=== PATIENT | female | born 1965 | race African-American/Black ===

== ENCOUNTER 2018-03-17 13:24 | Emergency (ER) | payer MEDICARE, OTHER ==
[~2018-03-17] VITALS: Ht 165.1 cm; Wt 110.0 kg
[~2018-03-17 13:24] MED LIST: ASCO500T24 PO; CITA10TA68 PO; CLOP75 PO; DIVA125T32 PO; GABA-533 PO; MONT10TA21 PO; TOPI100T37 PO; VERA240SR PO
[2018-03-17 15:04] LABS: BASOPHILS % (AUTO) 0.4 % (0.0-2.0); EOSINOPHILS % (AUTO) 2.5 % (1.0-6.0); HEMATOCRIT 40.2 % (36-46); HEMOGLOBIN 13.6 g/dL (12.0-16.0); LYMPHOCYTES # (AUTO) 1.7 K/uL (1.0-4.8); LYMPHOCYTES % (AUTO) 28.6 % (22.0-44.0); MEAN CORPUSCULAR HEMOGLOBIN 31.9 pg (26.0-34.0); MEAN CORPUSCULAR HGB CONC 33.7 G/dL (31.0-37.0); MEAN CORPUSCULAR VOLUME 95 fL (80-100); MONOCYTES # (AUTO) 0.7 K/uL (0.1-1.0); MONOCYTES % (AUTO) 11.2 % (2.0-9.0); NEUTROPHILS # (AUTO) 3.3 K/uL (1.8-7.7); NEUTROPHILS % (AUTO) 57.3 % (40.0-70.0); PLATELET COUNT (AUTO) 267 K/uL (150-450); RED BLOOD CELL COUNT(AUTO) 4.24 MIL/uL (4.00-5.20); RED CELL DISTRIBUTION WIDTH 15.5 % (11.5-14.5)
[2018-03-17 15:16] LABS: ANION GAP 9 mmol/L (8-16); CALCIUM, TOTAL 9.3 mg/dL (8.8-10.5); CARBON DIOXIDE 29 mmol/L (22-29); CHLORIDE 105 mmol/L (98-107); CREATININE 1.04 mg/dL (0.60-1.30); GLOMERULAR FILTR. RATE CALC > 60 mL/min (>60); GLUCOSE,RANDOM 84 mg/dL (70-110); POTASSIUM 4.3 mmol/L (3.5-5.1); SODIUM SERUM 143 mmol/L (136-145); UREA NITROGEN, BLOOD 8 mg/dL (7-18)
[2018-03-17 15:18] LABS: PROTHROMBIN TIME 10.4 SEC (9.4-11.6)
[2018-03-17 15:21] LABS: ALANINE AMINOTRANSFERASE 18 U/L (12-78); ALBUMIN 3.4 g/dL (3.4-5.0); ALKALINE PHOSPHATASE 105 U/L (46-116); ASPARTATE AMINOTRANSFERASE 17 U/L (15-37); BILIRUBIN,TOTAL 0.3 mg/dL (0.1-1.0)
[2018-03-17 15:33] LABS: VALPROIC ACID < 3 mcg/mL (50-100)
[2018-03-17 15:49] LABS: B-TYPE NATRIURETIC PEPTIDE 9 pg/mL (0-100)
[2018-03-17] MEDS ORDERED: SODIUM CHLORIDE 0.9% 100 ML ONE (15:58)
[2018-03-17] MEDS ORDERED: IOVERSOL 350 MG/ML 100 ML VIAL ONE (15:58)
[2018-03-17] MEDS ORDERED: ACETAMINOPHEN 500 MG TABLET PO ONE (17:00)
[2018-03-17 19:24] VITALS: BP 119/72
== END 2018-03-17 19:38 | disposition short-term general hospital (02) ==
LOC: EMS 13:56
DX: R53.1 Weakness (principal); R51 Headache; J02.9 Acute pharyngitis, unspecified; R19.7 Diarrhea, unspecified; F17.210 Nicotine dependence, cigarettes, uncomplicated; Z86.73 Personal history of transient ischemic attack (TIA), and cerebral infarction without residual deficits; Z88.0 Allergy status to penicillin; Z88.6 Allergy status to analgesic agent; Z88.5 Allergy status to narcotic agent
CPT/HCPCS: 36415; 70450; 70496; 71045; 80053; 80164; 83880; 84484; 85025; 85610; 85730; 93005; 99285; J7050; Q9967

== ENCOUNTER 2018-07-07 21:47 | Emergency (ER) | payer MEDICARE ==
[~2018-07-07] VITALS: Ht 165.1 cm; Wt 105.5 kg
[~2018-07-07 21:47] MED LIST changes: -CLOP75 PO; +CLOP75TA3 PO
[2018-07-07] MEDS ORDERED: TOPI100T37 PO (22:16)
[2018-07-07] MEDS ORDERED: ATOR40TA28 PO (22:17)
[2018-07-07] MEDS ORDERED: PERTUSS(ACELL),DIPH,TET VAC/PF 0.5 ML VIAL IM ONE (23:30)
[2018-07-08] MEDS ORDERED: HYDROCODONE/ACETAMINOPHEN 5-325 MG TABLET PO ONE (00:15)
[2018-07-08] MEDS ORDERED: LIDOCAINE 1% 10 ML VIAL INJ ONE (00:15)
[2018-07-08 00:36] LABS: BASOPHILS % (AUTO) 0.4 % (0.0-2.0); HEMATOCRIT 37.9 % (36-46); HEMOGLOBIN 12.6 g/dL (12.0-16.0); LYMPHOCYTES # (AUTO) 1.6 K/uL (1.0-4.8); LYMPHOCYTES % (AUTO) 25.1 % (22.0-44.0); MEAN CORPUSCULAR HEMOGLOBIN 32.1 pg (26.0-34.0); MEAN CORPUSCULAR HGB CONC 33.4 G/dL (31.0-37.0); MEAN CORPUSCULAR VOLUME 96 fL (80-100); MONOCYTES # (AUTO) 0.4 K/uL (0.1-1.0); MONOCYTES % (AUTO) 6.4 % (2.0-9.0); NEUTROPHILS # (AUTO) 4.2 K/uL (1.8-7.7); NEUTROPHILS % (AUTO) 67.1 % (40.0-70.0); PLATELET COUNT (AUTO) 284 K/uL (150-450); RED BLOOD CELL COUNT(AUTO) 3.94 MIL/uL (4.00-5.20); RED CELL DISTRIBUTION WIDTH 14.7 % (11.5-14.5)
[2018-07-08 00:43] LABS: ALANINE AMINOTRANSFERASE 10 U/L (12-78); ALBUMIN 3.3 g/dL (3.4-5.0); ALKALINE PHOSPHATASE 73 U/L (46-116); ANION GAP 11 mmol/L (8-16); ASPARTATE AMINOTRANSFERASE 9 U/L (15-37); BILIRUBIN,TOTAL 0.2 mg/dL (0.1-1.0); CARBON DIOXIDE 23 mmol/L (22-29); CHLORIDE 110 mmol/L (98-107); CREATININE 1.11 mg/dL (0.60-1.30); GLOMERULAR FILTR. RATE CALC > 60 mL/min (>60); GLUCOSE,RANDOM 91 mg/dL (70-110); POTASSIUM 4.1 mmol/L (3.5-5.1); SODIUM SERUM 144 mmol/L (136-145); TOTAL PROTEIN, SERUM 7.6 g/dL (6.4-8.2); UREA NITROGEN, BLOOD 9 mg/dL (7-18)
[2018-07-08 00:54] LABS: CALCIUM, TOTAL 9.4 mg/dL (8.8-10.5)
[2018-07-08] MEDS ORDERED: ONDANSETRON HCL 4 MG TABLET PO ONE (01:30)
[2018-07-08 01:59] LABS: APPEARANCE,URINE CLEAR (CLEAR); BILIRUBIN,URINE NEGATIVE (NEGATIVE); GLUCOSE, URINE (UA) NEGATIVE (NEGATIVE); KETONES,URINE NEGATIVE (NEGATIVE); LEUKOCYTE ESTERASE ,URINE NEGATIVE (NEGATIVE); NITRATE,URINE NEGATIVE (NEGATIVE); OCCULT BLOOD,URINE NEGATIVE (NEGATIVE); PROTEIN,URINE NEGATIVE (NEGATIVE); UROBILINOGEN,URINE 0.2 mg/dL (<=1.0)
[2018-07-08] MEDS ORDERED: POVIDONE-IODINE 10% 15 ML SOLUTION UD ONE (02:20)
[2018-07-08 02:48] VITALS: BP 116/76
== END 2018-07-08 02:51 | disposition home or self-care (01) ==
LOC: EMS 21:48
DX: S01.511A Laceration without foreign body of lip, initial encounter (principal); R42 Dizziness and giddiness; F17.210 Nicotine dependence, cigarettes, uncomplicated; Z88.0 Allergy status to penicillin; Z88.5 Allergy status to narcotic agent; Z88.6 Allergy status to analgesic agent; Z79.899 Other long term (current) drug therapy; W18.39XA Other fall on same level, initial encounter; Y93.89 Activity, other specified; Y92.89 Other specified places as the place of occurrence of the external cause; Y99.8 Other external cause status
CPT/HCPCS: 36415; 40650; 70450; 71045; 80053; 81003; 85025; 90471; 90715; 93005; 99284; J3490; Q0162

== ENCOUNTER 2019-02-06 02:47 | Inpatient (IN) | payer MEDICARE, OTHER ==
[~2019-02-06] VITALS: Ht 165.1 cm; Wt 94.3 kg
[~2019-02-06 02:47] MED LIST changes: -ASCO500T24 PO; +ATOR40TA28 PO; -GABA-533 PO; -MONT10TA21 PO; -VERA240SR PO
[2019-02-06 03:14] LABS: BASOPHILS % (AUTO) 0.4 % (0.0-2.0); EOSINOPHILS % (AUTO) 0.9 % (1.0-6.0); HEMATOCRIT 40.5 % (36-46); HEMOGLOBIN 12.8 g/dL (12.0-16.0); LYMPHOCYTES # (AUTO) 3.3 K/uL (1.0-4.8); LYMPHOCYTES % (AUTO) 30.2 % (22.0-44.0); MEAN CORPUSCULAR HGB CONC 31.5 G/dL (31.0-37.0); MEAN CORPUSCULAR VOLUME 102 fL (80-100); MONOCYTES # (AUTO) 0.6 K/uL (0.1-1.0); MONOCYTES % (AUTO) 5.2 % (2.0-9.0); NEUTROPHILS # (AUTO) 6.9 K/uL (1.8-7.7); NEUTROPHILS % (AUTO) 63.3 % (40.0-70.0); PLATELET COUNT (AUTO) 287 K/uL (150-450); RED BLOOD CELL COUNT(AUTO) 3.99 MIL/uL (4.00-5.20)
[2019-02-06] MEDS ORDERED: SODIUM CHLORIDE 0.9% 100 ML ONE (03:14)
[2019-02-06] MEDS ORDERED: IOVERSOL 350 MG/ML 100 ML VIAL ONE (03:14)
[2019-02-06 03:22] LABS: PROTHROMBIN TIME 10.3 SEC (9.4-11.6)
[2019-02-06 03:23] LABS: ANION GAP 24 mmol/L (8-16); CALCIUM, TOTAL 9.6 mg/dL (8.8-10.5); CARBON DIOXIDE 14 mmol/L (22-29); CHLORIDE 105 mmol/L (98-107); CREATININE 1.49 mg/dL (0.60-1.30); GLOMERULAR FILTR. RATE CALC 44 mL/min (>60); GLUCOSE,RANDOM 224 mg/dL (70-110); POTASSIUM 3.9 mmol/L (3.5-5.1); SODIUM SERUM 143 mmol/L (136-145); UREA NITROGEN, BLOOD 13 mg/dL (7-18)
[2019-02-06] MEDS ORDERED: LORazepam 2 MG/ML VIAL ONE (03:23)
[2019-02-06 03:29] LABS: ALANINE AMINOTRANSFERASE 13 U/L (12-78); ALBUMIN 3.6 g/dL (3.4-5.0); ALKALINE PHOSPHATASE 94 U/L (46-116); ASPARTATE AMINOTRANSFERASE 16 U/L (15-37); BILIRUBIN,TOTAL 0.1 mg/dL (0.1-1.0); TOTAL PROTEIN, SERUM 7.1 g/dL (6.4-8.2)
[2019-02-06 03:43] LABS: VALPROIC ACID < 3 mcg/mL (50-100)
[2019-02-06 04:14] LABS: ACETAMINOPHEN 5 mcg/mL (10-30)
[2019-02-06 04:35] LABS: LACTIC ACID 6.2 mmol/L (0.4-2.0)
[2019-02-06] MEDS ORDERED: DiphenhydrAMINE HCL 50 MG/ML VIAL IVP STA (04:36)
[2019-02-06] MEDS ORDERED: ACETAMINOPHEN 1000 MG/ISO-OSM 100 ML IV ONE (04:45)
[2019-02-06] MEDS ORDERED: NITROGLYCERIN 0.4 MG SUBLINGUAL TABLET #25 SL ONE (04:45)
[2019-02-06] MEDS ORDERED: METOCLOPRAMIDE HCL 5 MG/ML 2 ML VIAL IVP ONE (04:45)
[2019-02-06] MEDS ORDERED: LevETIRAcetam 500 MG in DEXTROSE 5%-WATER 100 ML IV ONE (05:00)
[2019-02-06 05:16] LABS: B-TYPE NATRIURETIC PEPTIDE 10 pg/mL (0-100)
[2019-02-06 05:55] LABS: APPEARANCE,URINE CLOUDY (CLEAR); BILIRUBIN,URINE NEGATIVE (NEGATIVE); GLUCOSE, URINE (UA) NEGATIVE (NEGATIVE); KETONES,URINE NEGATIVE (NEGATIVE); LEUKOCYTE ESTERASE ,URINE NEGATIVE (NEGATIVE); NITRATE,URINE NEGATIVE (NEGATIVE); OCCULT BLOOD,URINE TRACE (NEGATIVE); PROTEIN,URINE POS 1+ (NEGATIVE); UROBILINOGEN,URINE 0.2 mg/dL (<=1.0)
[2019-02-06] MEDS ORDERED: SODIUM CHLORIDE 0.9% 1,000 ML IV ONE (06:00)
[2019-02-06] MEDS ORDERED: ONDANSETRON HCL 4 MG/2 ML VIAL IVP PRN ×2 (06:00→08:45)
[2019-02-06 06:01] LABS: AMPHET/METH SCREEN,URINE NEGATIVE (NEGATIVE); BARBITURATE SCREEN, URINE NEGATIVE (NEGATIVE); BENZODIAZEPINES SCREEN,URINE POSITIVE (NEGATIVE); CANNABINOID SCREEN,URINE POSITIVE (NEGATIVE); COCAINE SCREEN,URINE NEGATIVE (NEGATIVE); METHADONE SCREEN, URINE NEGATIVE (NEGATIVE); OPIATE SCREEN,URINE NEGATIVE (NEGATIVE); PHENCYCLIDINE SCREEN,URINE NEGATIVE (NEGATIVE)
[2019-02-06 06:12] LABS: BACTERIA,URINE Few /HPF (None Seen); RBC,URINE 0-2 /HPF (0-2); SQUAMOUS EPITHELIAL CELL,UR Moderate /LPF (None Seen); WBC,URINE 0-2 /HPF (0-5); YEAST,URINE Rare /HPF (None Seen)
[2019-02-06] MEDS ORDERED: HEPARIN SODIUM 25000 UNITS/D5W 250 ML IV PRN (08:29)
[2019-02-06] MEDS ORDERED: HEPARIN SODIUM,PORCINE 5,000 UNITS/ML VIAL IVP PRN ×3 (08:30→11:46)
[2019-02-06] MEDS ORDERED: HEPARIN SODIUM,PORCINE 5,000 UNITS/ML VIAL IVP ONE ×2 (08:30→11:45)
[2019-02-06 08:34] VITALS: BP 117/74
[2019-02-06] MEDS ORDERED: ACETAMINOPHEN 325 MG TABLET PO PRN (08:45)
[2019-02-06] MEDS ORDERED: LORazepam 2 MG/ML VIAL IVP PRN (08:45)
[2019-02-06] MEDS ORDERED: FAMOTIDINE 20 MG TABLET PO SCH (09:00)
[2019-02-06] MEDS ORDERED: ATORVASTATIN CALCIUM 40 MG TABLET PO SCH (09:00)
[2019-02-06] MEDS ORDERED: CLOPIDOGREL BISULFATE 75 MG TABLET PO SCH (09:45)
[2019-02-06] MEDS: ACETAMINOPHEN 325 MG TABLET PO PRN ×2 (11:45→21:10)
[2019-02-06] MEDS: DOCUSATE SODIUM 100 MG CAPSULE PO SCH ×2 (11:46→23:04)
[2019-02-06] MEDS: METOPROLOL TARTRATE 25 MG TABLET PO SCH ×2 (11:46→21:00)
[2019-02-06 12:00] VITALS: BP 114/80
[2019-02-06 12:34] LABS: BASOPHILS % (AUTO) 0.4 % (0.0-2.0); EOSINOPHILS % (AUTO) 0.1 % (1.0-6.0); HEMATOCRIT 39.2 % (36-46); HEMOGLOBIN 12.8 g/dL (12.0-16.0); LYMPHOCYTES # (AUTO) 2.1 K/uL (1.0-4.8); LYMPHOCYTES % (AUTO) 18.3 % (22.0-44.0); MEAN CORPUSCULAR HEMOGLOBIN 31.5 pg (26.0-34.0); MEAN CORPUSCULAR HGB CONC 32.6 G/dL (31.0-37.0); MEAN CORPUSCULAR VOLUME 96 fL (80-100); MONOCYTES # (AUTO) 0.6 K/uL (0.1-1.0); MONOCYTES % (AUTO) 5.4 % (2.0-9.0); NEUTROPHILS # (AUTO) 8.9 K/uL (1.8-7.7); NEUTROPHILS % (AUTO) 75.8 % (40.0-70.0); PLATELET COUNT (AUTO) 249 K/uL (150-450); RED BLOOD CELL COUNT(AUTO) 4.06 MIL/uL (4.00-5.20)
[2019-02-06 13:03] LABS: INR 1.1 (0.9-1.1); PROTHROMBIN TIME 10.7 SEC (9.4-11.6)
[2019-02-06] MEDS ORDERED: NITROGLYCERIN 0.4 MG SUBLINGUAL TABLET #25 SL PRN (15:45)
[2019-02-06] MEDS ORDERED: MORPHINE SULFATE 2 MG/ML SYRINGE IVP PRN (15:55)
[2019-02-06 17:00] VITALS: BP_SYST 111; BP_SYST 122; BP_DIAS 62
[2019-02-06] MEDS ORDERED: TraMADol HCL 50 MG TABLET PO PRN (17:30)
[2019-02-06 18:29] VITALS: BP 94/66
[2019-02-06] MEDS ORDERED: NITROGLYCERIN 50 MG/D5% WATER 250 ML IV PRN (19:10)
[2019-02-06 19:38] VITALS: BP 98/56
[2019-02-06 21:00] VITALS: BP 127/79
[2019-02-06] MEDS ORDERED: NITROGLYCERIN 50 MG/D5% WATER 250 ML IV SCH (21:00)
[2019-02-06] MEDS ORDERED: FentaNYL CITRATE-PF 100 MCG/2 ML VIAL IVP PRN (21:45)
[2019-02-07] VITALS: BP 124/49
== END 2019-02-07 00:35 | disposition short-term general hospital (02) | DRG 280 ==
LOC: EMS 02:47 → 5S 08:13 → ICU 20:15 → UNDODISIN 02-07 00:35
PROVIDERS: ADMIT Internal Medicine; ATTEND Internal Medicine
PROC: 4A00X4Z Measurement of Central Nervous Electrical Activity, External Approach (ICD-10-PCS; principal; 2019-02-06)
DX: I21.4 Non-ST elevation (NSTEMI) myocardial infarction (principal); R57.0 Cardiogenic shock; I50.23 Acute on chronic systolic (congestive) heart failure; I13.0 Hypertensive heart and chronic kidney disease with heart failure and stage 1 through stage 4 chronic kidney disease, or unspecified chronic kidney disease; E87.2 Acidosis; N17.9 Acute kidney failure, unspecified; I69.354 Hemiplegia and hemiparesis following cerebral infarction affecting left non-dominant side; G40.901 Epilepsy, unspecified, not intractable, with status epilepticus; E78.5 Hyperlipidemia, unspecified; F17.210 Nicotine dependence, cigarettes, uncomplicated; G43.909 Migraine, unspecified, not intractable, without status migrainosus; N18.9 Chronic kidney disease, unspecified; Z82.49 Family history of ischemic heart disease and other diseases of the circulatory system; Z83.3 Family history of diabetes mellitus; Z88.6 Allergy status to analgesic agent; Z88.0 Allergy status to penicillin; Z88.5 Allergy status to narcotic agent; Z88.8 Allergy status to other drugs, medicaments and biological substances
CPT/HCPCS: 83605; 87081; 93005; 93306; 95816; 96374; 96375; 99291; G0378; G0480; G0481; J0131; J0712; J1200; J1644; J2060; J2765; J3490; J7030; J7050; J7060

== ENCOUNTER 2020-04-26 11:28 | Emergency (ER) | payer BC, MEDICARE ==
[~2020-04-26] VITALS: Ht 177.8 cm; Wt 118.2 kg
[~2020-04-26 11:28] MED LIST changes: -CITA10TA68 PO; +CITA10TA99 PO; +CLOP-31 PO; -CLOP75TA3 PO
[2020-04-26 13:30] VITALS: BP 121/72
== END 2020-04-26 14:00 | disposition home or self-care (01) ==
LOC: EMS 11:30
DX: S66.912A Strain of unspecified muscle, fascia and tendon at wrist and hand level, left hand, initial encounter (principal); S96.912A Strain of unspecified muscle and tendon at ankle and foot level, left foot, initial encounter; S00.81XA Abrasion of other part of head, initial encounter; F17.210 Nicotine dependence, cigarettes, uncomplicated; Z86.73 Personal history of transient ischemic attack (TIA), and cerebral infarction without residual deficits; Z88.0 Allergy status to penicillin; Z88.6 Allergy status to analgesic agent; Z88.5 Allergy status to narcotic agent; W01.0XXA Fall on same level from slipping, tripping and stumbling without subsequent striking against object, initial encounter; Y93.89 Activity, other specified; Y92.89 Other specified places as the place of occurrence of the external cause; Y99.8 Other external cause status
CPT/HCPCS: 70450

== ENCOUNTER 2023-05-05 13:15 | Emergency (ER) | payer BC, MEDICARE ==
[~2023-05-05] VITALS: Ht 165.1 cm; Wt 86.4 kg
[~2023-05-05 13:15] MED LIST changes: -CLOP-31 PO; +CLOP75TA60 PO
[2023-05-05 13:19] VITALS: TEMP 97.9
[2023-05-05] MEDS ORDERED: GABAPENTIN 100 MG CAPSULE PO ONE (15:15)
[2023-05-05] MEDS ORDERED: ACETAMINOPHEN 500 MG TABLET PO ONE (15:15)
[2023-05-05 15:37] LABS: BASOPHILS % (AUTO) 0.5 % (0.0-2.0); EOSINOPHILS % (AUTO) 2.8 % (1.0-6.0); HEMATOCRIT 25.7 % (36-46); LYMPHOCYTES # (AUTO) 2.4 K/uL (1.0-4.8); LYMPHOCYTES % (AUTO) 39.5 % (22.0-44.0); MEAN CORPUSCULAR HEMOGLOBIN 21.6 pg (26.0-34.0); MEAN CORPUSCULAR VOLUME 70 fL (80-100); MONOCYTES # (AUTO) 0.6 K/uL (0.1-1.0); MONOCYTES % (AUTO) 9.7 % (2.0-9.0); NEUTROPHILS # (AUTO) 2.9 K/uL (1.8-7.7); NEUTROPHILS % (AUTO) 47.5 % (40.0-70.0); PLATELET COUNT (AUTO) 366 K/uL (150-450); RED CELL DISTRIBUTION WIDTH 20.6 % (11.5-14.5); WHITE BLOOD COUNT (AUTO) 6.2 K/uL (4.5-11.0)
[2023-05-05 15:49] LABS: ANION GAP 8 mmol/L (8-16); CALCIUM, TOTAL 8.9 mg/dL (8.8-10.5); CARBON DIOXIDE 27 mmol/L (22-29); CHLORIDE 105 mmol/L (98-107); CREATININE 1.04 mg/dL (0.60-1.30); GLOMERULAR FILTR. RATE CALC > 60 mL/min (>60); GLUCOSE,RANDOM 85 mg/dL (70-110); POTASSIUM 3.8 mmol/L (3.5-5.1); SODIUM SERUM 140 mmol/L (136-145); UREA NITROGEN, BLOOD 16 mg/dL (7-18)
[2023-05-05 15:54] LABS: ALANINE AMINOTRANSFERASE 30 U/L (12-78); ALBUMIN 3.9 g/dL (3.4-5.0); ALKALINE PHOSPHATASE 129 U/L (46-116); ASPARTATE AMINOTRANSFERASE 30 U/L (15-37); BILIRUBIN,TOTAL 0.1 mg/dL (0.1-1.0); TOTAL PROTEIN, SERUM 7.6 g/dL (6.4-8.2); TROPONIN I-HIGH SENSITIVITY 6 ng/L (<51)
[2023-05-05 16:14] LABS: RBC MORPHOLOGY COMMENT ABNORMAL RBC MORPH
[2023-05-05] MEDS ORDERED: GABA-1216 PO ×2 (17:40→17:52)
[2023-05-05] MEDS ORDERED: ACET-66 PO ×2 (17:40→17:52)
[2023-05-05 18:07] VITALS: BP 146/72; PULSE 81; RESP 16
== END 2023-05-05 18:09 | disposition home or self-care (01) ==
LOC: EMS 13:16
DX: M19.012 Primary osteoarthritis, left shoulder (principal); M25.512 Pain in left shoulder; I69.30 Unspecified sequelae of cerebral infarction; D64.9 Anemia, unspecified; F17.210 Nicotine dependence, cigarettes, uncomplicated; Z98.890 Other specified postprocedural states; Z88.0 Allergy status to penicillin; Z88.6 Allergy status to analgesic agent; Z88.5 Allergy status to narcotic agent
CPT/HCPCS: 71045; 80053; 84484; 85025; 93005; 99285; 36415-L1; 36415-TC